=== PATIENT | female | born 1965 | race Caucasian/White ===

== ENCOUNTER 2016-08-12 14:01 | Outpatient (RCR) | payer MEDICAID ==
[2016-08-12] MEDS ORDERED: DALIRESP500 MCG PO (15:33)
[2016-08-12] MEDS ORDERED: THEOPHYLLINE400 M1 PO (15:33)
[2016-08-12] MEDS ORDERED: ROPINIROLE HYDRO1 MG (15:34)
[2016-08-12] MEDS ORDERED: ESCITALOPRAM20 MG PO (15:34)
[2016-08-12] MEDS ORDERED: PRAZOSIN HYDROCH5 MG PO (15:34)
[2016-08-12] MEDS ORDERED: DESYREL DIVIDO150 M1 PO (15:34)
[2016-08-12] MEDS ORDERED: LOPRESSOR 225 MG/TAB PO (15:34)
[2016-08-12] MEDS ORDERED: OMEPRAZOLE D/R20 MG PO (15:34)
[2016-08-12] MEDS ORDERED: KLONOPIN 1MG1 MG PO (15:35)
[2016-08-12] MEDS ORDERED: NEURONTIN300 MG/CAP (15:35)
[2016-08-12] MEDS ORDERED: DULOXETINE60 MG PO (15:35)
[2016-08-12] MEDS ORDERED: PERCOCET 325 MG1 TAB PO (15:35)
== END 2016-10-24 11:55 | disposition home or self-care (01) ==
LOC: PT 14:01
DX: M75.02 Adhesive capsulitis of left shoulder (principal)

== ENCOUNTER 2016-08-12 15:42 | Emergency (ER) | payer MEDICAID ==
[~2016-08-12 15:42] MED LIST: DALIRESP500 MCG PO; DESYREL DIVIDO150 M1 PO; DULOXETINE60 MG PO; ESCITALOPRAM20 MG PO; KLONOPIN 1MG1 MG PO; LOPRESSOR 225 MG/TAB PO; NEURONTIN300 MG/CAP; OMEPRAZOLE D/R20 MG PO; PERCOCET 325 MG1 TAB PO; PRAZOSIN HYDROCH5 MG PO; ROPINIROLE HYDRO1 MG; THEOPHYLLINE400 M1 PO
== END 2016-08-12 17:48 | disposition home or self-care (01) ==
LOC: ED 15:42
DX: R20.0 Anesthesia of skin (principal); R53.1 Weakness; Z86.73 Personal history of transient ischemic attack (TIA), and cerebral infarction without residual deficits

== ENCOUNTER 2016-10-11 22:42 | Emergency (ER) | payer MEDICAID ==
[2016-10-12 00:01] VITALS: BP 112/74
== END 2016-10-12 00:01 | disposition home or self-care (01) ==
LOC: ED 22:42
DX: S90.111A Contusion of right great toe without damage to nail, initial encounter (principal); W20.8XXA Other cause of strike by thrown, projected or falling object, initial encounter; Y92.009 Unspecified place in unspecified non-institutional (private) residence as the place of occurrence of the external cause

== ENCOUNTER 2017-12-05 21:07 | Emergency (ER) | payer MEDICAID ==
[~2017-12-05] VITALS: Ht 160 cm; Wt 81.8 kg
[2017-12-05] MEDS ORDERED: NYSTATIN UD5 ML/CUP PO (22:34)
[2017-12-05] MEDS ORDERED: PREDNISONE20 M1 PO (22:34)
[2017-12-05] MEDS ORDERED: ASPIRIN E.C. 8181 MG PO (22:36)
[2017-12-05] MEDS ORDERED: BUSPIRONE5 MG PO (22:36)
[2017-12-05] MEDS ORDERED: CYMBALTA60 M1 PO (22:37)
[2017-12-05] MEDS ORDERED: KLONOPIN 1MG1 MG PO (22:37)
[2017-12-05] MEDS ORDERED: FERROUS SULFATE65 MG PO (22:37)
[2017-12-05] MEDS ORDERED: NORCO 325 MG-7.1 TA1 PO (22:38)
[2017-12-05] MEDS ORDERED: CODEINE/GUAIFE120 M2 PO (22:38)
[2017-12-05] MEDS ORDERED: KETOROLAC10 MG PO (22:39)
[2017-12-05] MEDS ORDERED: GOOD NEIGHBOR200 M1 PO (22:39)
[2017-12-05] MEDS ORDERED: LOPRESSOR 225 MG/TAB PO (22:40)
[2017-12-05] MEDS ORDERED: KEPPRA 500MG500 MG PO (22:40)
[2017-12-05] MEDS ORDERED: ROBAXIN-750750 MG PO (22:40)
[2017-12-05] MEDS ORDERED: MINIPRESS5 M1 PO (22:41)
[2017-12-05] MEDS ORDERED: PRILOSEC 20MG20 MG PO (22:41)
[2017-12-05] MEDS ORDERED: PROBIOTIC & ACI1 CAP PO (22:41)
[2017-12-05] MEDS ORDERED: DITROPAN 5MG TAB5 MG PO (22:41)
[2017-12-05] MEDS ORDERED: DALIRESP500 MCG PO (22:42)
[2017-12-05] MEDS ORDERED: COMPAZINE10 M2 PO (22:42)
[2017-12-05] MEDS ORDERED: REQUIP 1MG T1 MG/TAB PO (22:42)
[2017-12-05] MEDS ORDERED: TOPAMAX25 MG PO (22:43)
[2017-12-05] MEDS ORDERED: DESYREL DIVIDO150 M1 PO (22:43)
[2017-12-05] MEDS ORDERED: RETIN-A20 G1 TP (22:44)
[2017-12-05] MEDS ORDERED: TYLENOL EXTRA500 M2 PO (22:44)
[2017-12-05] MEDS ORDERED: VITAMIN C PURE500 M1 PO (22:45)
[2017-12-06 00:05] VITALS: BP 105/74
== END 2017-12-06 00:05 | disposition home or self-care (01) ==
LOC: ED 21:07
DX: R22.0 Localized swelling, mass and lump, head (principal); T50.905A Adverse effect of unspecified drugs, medicaments and biological substances, initial encounter; B37.0 Candidal stomatitis; J44.9 Chronic obstructive pulmonary disease, unspecified; F17.200 Nicotine dependence, unspecified, uncomplicated
CPT/HCPCS: J1200; J2930; J3490; J7030

== ENCOUNTER 2018-01-14 11:00 | Outpatient (RCR) | payer MEDICAID ==
[~2018-01-14 11:00] MED LIST changes: +ASPIRIN E.C. 8181 MG PO; +BUSPIRONE5 MG PO; +CODEINE/GUAIFE120 M2 PO; +COMPAZINE10 M2 PO; +CYMBALTA60 M1 PO; +DITROPAN 5MG TAB5 MG PO; +FERROUS SULFATE65 MG PO; +GOOD NEIGHBOR200 M1 PO; +KEPPRA 500MG500 MG PO; +KETOROLAC10 MG PO; +MINIPRESS5 M1 PO; +NORCO 325 MG-7.1 TA1 PO; +NYSTATIN UD5 ML/CUP PO; +PREDNISONE20 M1 PO; +PRILOSEC 20MG20 MG PO; +PROBIOTIC & ACI1 CAP PO; +REQUIP 1MG T1 MG/TAB PO; +RETIN-A20 G1 TP; +ROBAXIN-750750 MG PO; +TOPAMAX25 MG PO; +TYLENOL EXTRA500 M2 PO; +VITAMIN C PURE500 M1 PO
== END 2018-01-14 11:30 | disposition home or self-care (01) ==
LOC: PT 11:00
DX: M54.5 Low back pain (principal)

== ENCOUNTER → 2018-03-31 | Outpatient (CLI) | payer MEDICAID | LOC: PT 09:57 → EDSTATUS 10:00 → PT 10:00 | DX: Z01.818 Encounter for other preprocedural examination (principal); M17.12 Unilateral primary osteoarthritis, left knee ==

== ENCOUNTER 2018-04-13 11:30 | Outpatient (RCR) | payer MEDICAID | END 2018-04-13 12:00 | disposition home or self-care (01) | LOC: PT 11:30 | DX: Z47.89 Encounter for other orthopedic aftercare (principal) ==

== ENCOUNTER 2018-12-13 17:44 | Emergency (ER) | payer SELFPAY ==
[~2018-12-13] VITALS: Ht 165.1 cm; Wt 83.2 kg
[2018-12-13 17:49] VITALS: BP 147/72
== END 2018-12-13 21:00 | disposition home or self-care (01) ==
LOC: ED 17:44
DX: M65.841 Other synovitis and tenosynovitis, right hand (principal); Z90.49 Acquired absence of other specified parts of digestive tract